=== PATIENT | female | born 1995 | race Caucasian/White ===

== ENCOUNTER 2021-10-16 06:29 | Emergency (ER) | payer OTHER, SELFPAY ==
--- NOTE | ~2021-10-16 | XR_ITS ---
EXAMINATION: XR shoulder RT min 2V DATE: 10/16/2021 08:20 INDICATION: 4 months of neck and right shoulder pain. TECHNIQUE: AP internally and externally rotated, AP oblique externally rotated and transscapular Y vi ews of the right shoulder were obtained. COMPARISON: None FINDINGS: Normal alignment. No fracture. Glenohumeral joint is normal. Acromioclavicular joint is normal. Soft tissues are unremarkable. Visualized portions of the lungs are clear. Likely dermal patch along the chest wall side of the right axilla. IMPRESSION: Negative right shoulder radiographs. Reviewed, dictated and finalized at location A. [facility]
--- NOTE | ~2021-10-16 | XR_ITS ---
EXAMINATION:XR_[id number]_CR DATE: 10/16/2021 08:19 INDICATION: Neck pain radiating into the right shoulder TECHNIQUE: AP, lateral and odontoid views of the cervical spine are provided. COMPARISON: None FINDINGS: 15 degrees cervicothoracic levoscoliosis. Mild focal kyphosis at the lower cervical spine with mild d isc height loss at C5-C6. Vertebral body heights are normal. Minimal uncovertebral osteoarthritis at C3-C4 through C5-C6. Minimal cervical facet osteoarthritis. Odontoid is intact. Normal atlantoaxial interval. Prevertebral soft tissues are normal. Visualized apices of the lungs are clear. IMPRESSION: 1. Mild cervical thoracic levoscoliosis. 2. Minimal to mild cervical spondylosis with mild disc height loss at C5-C6. Reviewed, dictated and finalized at location A. [facility] ASSISTANT
[2021-10-16 06:35] VITALS: BP 136/93; PULSE 87; RESP 17; TEMP 36.4; O2SAT 99
[2021-10-16] MEDS: CYCLOBENZAPRINE HCL 10 MG TABLET PO (08:19)
[2021-10-16 08:20] VITALS: BP 141/90; PULSE 80; RESP 18; O2SAT 100
--- NOTE | 2021-10-16 08:21 | PC.NURSE ---
Radiology reports that patient was non-compliant in x-ray and yelling cuss words at staff. Patient not willing to sit still throughout x-rays per radiology department.
--- NOTE | 2021-10-16 09:01 | ED.GENADULT ---
HPI - General Adult General Chief complaint: Extremity Injury, Upper Stated complaint: right arm and shoulder pain Time Seen by Provider: 10/16/21 07:05 Source: patient and RN notes reviewed History of Present Illness HPI narrative: Patient is a 26 y/o female complaining of right neck and shoulder pain starting 1 month ago. She describes her pain as aching and rates it as 9/10. There is no known alleviating or exacerbating factor. She took Ibuprofen which did not help. She is able to move right arm without difficulty. Related Data Allergies Allergy/AdvReac Type Severity Reaction Status Date / Time acetaminophen [From Percocet] AdvReac Dizziness Verified 10/16/21 06:39 oxycodone [From Percocet] AdvReac Dizziness Verified 10/16/21 06:39 Review of Systems Constitutional: Constitutional: Denies chills, Denies fever(s), Denies headache(s) and Denies weakness Eyes: Eyes: Denies blurry vision ENT: Denies headache(s) and Denies neck pain Cardiovascular: Cardiovascular: Denies chest pain and Denies dyspnea Respiratory: Respiratory: Denies cough and Denies dyspnea Gastrointestinal: Gastrointestinal: Denies abdominal pain, Denies diarrhea, Denies nausea and Denies vomiting Genitourinary: Genitourinary: Denies hematuria and Denies dysuria Musculoskeletal: Musculoskeletal: Denies back pain, Reports arthralgias (right shoulder pain) and Reports neck pain Neurologic: Denies headache(s) and Denies weakness Exam Const: General: no acute distress and well developed Orientation/consciousness: oriented to person, oriented to place, oriented to time and patient oriented x3 HENMT: Head: normocephalic Ears: external ears normal General nose exam: Normal external nose present Eyes: General: appearance normal, both eyes and all related structures Conjunctivae: conjunctivae normal Neck: Neck: normal visual inspection and full ROM Chest: Chest palpation & inspection: normal inspection of the chest and no tenderness Resp: Effort & Inspection: normal respiratory effort Auscultation: clear to auscultation bilaterally Cardio: Rate: regular rate Rhythm: regular rhythm GI: GI Palp: No abdominal tenderness and Yes Soft to palpation Skin: General skin exam: normal color and turgor normal Neuro: General: oriented to person, oriented to place, oriented to time and patient oriented x3 Cognition (Neuro): normal cognition Extrem: General: normal to inspection, full ROM and no pedal edema Psych: Appearance: grossly normal Mental Status: mental status grossly normal Affect: normal affect Course Vital Signs Vital signs: Vital Signs Temperature 36.4 C L 10/16/21 06:35 Pulse Rate 87 10/16/21 06:35 Respiratory Rate 17 10/16/21 06:35 Blood Pressure 136/93 H 10/16/21 06:35 Pulse Oximetry 99 10/16/21 06:35 Temperature 36.4 C L 10/16/21 06:35 Pulse Rate 80 10/16/21 08:20 Respiratory Rate 18 10/16/21 08:20 Blood Pressure 141/90 H 10/16/21 08:20 Pulse Oximetry 100 10/16/21 08:20 Medical Decision Making Vital Signs Vital Signs: Vital Signs Temperature 36.4 C L 10/16/21 06:35 Pulse Rate 87 10/16/21 06:35 Respiratory Rate 17 10/16/21 06:35 Blood Pressure 136/93 H 10/16/21 06:35 Pulse Oximetry 99 10/16/21 06:35 Temperature 36.4 C L 10/16/21 06:35 Pulse Rate 80 10/16/21 08:20 Respiratory Rate 18 10/16/21 08:20 Blood Pressure 141/90 H 10/16/21 08:20 Pulse Oximetry 100 10/16/21 08:20 Discharge Plan Discharge Clinical Impression: Cervical radiculopathy Patient Disposition: Home, Self-Care Condition: Stable Instructions: Cervical Radiculopathy (ED) Prescriptions: New cyclobenzaprine 10 mg tablet 10 mg PO TID PRN (Reason: muscle spasm) Qty: 20 RF: 0 Follow-up/Referrals: PHYSICIAN,MULTIPLE [employer]TER OPERATOR [Primary Care Provider] -
== END 2021-10-16 09:33 | disposition home or self-care (01) ==
PROVIDERS: Emergency Provider Emergency Medicine
DX: M54.12 Radiculopathy, cervical region (principal)
CPT/HCPCS: 72040; 73030; 99284; A9270